=== PATIENT | female | born 2005 | race Two or more races ===

== ENCOUNTER 2024-11-18 23:00 | Emergency (ER) | payer OTHER ==
[~2024-11-18] VITALS: Ht 162.6 cm; Wt 84.8 kg
[2024-11-19] MEDS ORDERED: KETOROLAC TROMETHAMINE 10 MG TABLET PO ONE (01:58)
[2024-11-19] MEDS ORDERED: KETOROLAC TROMETHAMINE 10 MG TABLET PO STA (01:58)
== END 2024-11-19 02:10 | disposition home or self-care (01) ==
LOC: ER 23:00
DX: S00.03XA Contusion of scalp, initial encounter (principal); X58.XXXA Exposure to other specified factors, initial encounter; Y93.89 Activity, other specified; Y92.013 Bedroom of single-family (private) house as the place of occurrence of the external cause; Y99.9 Unspecified external cause status